=== PATIENT | female | born 2000 | race Caucasian/White ===

== ENCOUNTER 2019-12-27 10:40 | Emergency (ER) | payer OTHER ==
[2019-12-27 12:44] LABS: Urine Blood NEGATIVE (NEG); Urine Glucose NEGATIVE (NEG); Urine Protein NEGATIVE (NEG); Urine Specific Gravity 1.025 (1.005-1.030); Urine pH 7.5 (5.0-7.0)
--- NOTE | 2019-12-27 12:49 | ER ---
Nurse's Notes [facility] Name: Cherelle Randolph Age: 19 yrs Sex: Female : 2000 Arrival Date: 12/27/2019 Time: 11:12 Bed 12 Private MD: Diagnosis: Contact with other nonvenomous marine animals Presentation: 12/26 11:17 Chief complaint: Patient states: L thumb swelling that began 13 hours ago. pt reports ss it started out as a rash that went up her arm, but that has since gone away. Coronavirus screen: Proceed with normal triage. Patient denies a cough. Patient denies shortness of breath or difficulty breathing. Patient denies measured and/or subjective temperature greater than 100.4F prior to today's visit. Patient denies travel on a cruise ship or to a country the [facility] currently lists as an affected area. Patient denies contact with known and/or suspected case of COVID-19. Ebola Screen: Patient denies exposure to infectious person. Patient denies travel to an Ebola-affected area in the 21 days before illness onset. Initial Sepsis Screen: Does the patient meet any 2 criteria? No. Patient's initial sepsis screen is negative. Does the patient have a suspected source of infection? No. Patient's initial sepsis screen is negative. Risk Assessment: Do you want to hurt yourself or someone else?. Onset of symptoms was December 26, 2019. 11:17 Method Of Arrival: Ambulatory ss 11:17 Acuity: KRYSTAL 5 ss Historical: - Allergies: 11:20 Kiwi (Actinidia Chinensis); ss - Home Meds: 11:20 None [Active]; ss - PMHx: 11:20 None; ss - PSHx: 11:20 cyst removed from wrist; ss - Immunization history:: Adult Immunizations up to date. - Social history:: Smoking status: Patient denies any tobacco usage or history of. Screenin:17 Abuse screen: Denies threats or abuse. Denies injuries from another. Nutritional ss screening: No deficits noted. Tuberculosis screening: Never had TB. Fall Risk None identified. Assessment: 11:17 General: Appears in no apparent distress. comfortable, Behavior is calm, cooperative, ss Denies fever, feeling ill, fatigue, chills. Pain: Complains of pain in IP of right thumb Pain currently is 0 out of 10 on a pain scale. Neuro: Level of Consciousness is awake, alert, obeys commands, Oriented to person, place, time, situation. Cardiovascular: Pulses are palpable in right radial artery and left radial artery. Respiratory: Airway is patent Respiratory effort is even, unlabored, Respiratory pattern is regular, symmetrical. EENT: Oral mucosa is moist. Derm: Skin is pink, warm \T\ dry. normal. Musculoskeletal: Circulation, motion, and sensation intact. Capillary refill < 3 seconds, is brisk, in bilateral fingers. Range of motion: intact in all extremities, Swelling absent. Vital Signs: 11:17 BP 127 / 70; Pulse 59; Resp 16; Temp 98.2(TE); Pulse Ox 99% on R/A; Weight 44.54 kg; ss Pain 0/10; ED Course: 11:12 Patient arrived in ED. ss 11:17 Patient has correct armband on for positive identification. Bed in low position. Call ss light in reach. 11:17 No provider procedures requiring assistance completed. Patient did not have IV access ss during this emergency room visit. 11:19 Triage completed. ss 11:20 Arm band placed on right wrist. ss 12:01 Zuleyma Rocha FNP-C is [facility]. snw 12:01 Farhad Ibarra MD is Attending Physician. snw 12:18 Monse Hughes, DANIEL is Primary Nurse. ss Administered Medications: 13:06 Drug: Doxycycline 100 mg Route: PO; hb 13:20 Follow up: Response: No adverse reaction ss 13:06 Drug: Motrin 400 mg Route: PO; hb 13:20 Follow up: Response: No adverse reaction ss Outcome: 12:49 Discharge ordered by . snw 13:07 Patient left the ED. hb 13:07 Discharged to home ambulatory. ss 13:07 Condition: good 13:07 Discharge instructions given to patient, Instructed on discharge instructions, follow up and referral plans. medication usage, Demonstrated understanding of instructions, follow-up care, medications. Signatures: Zuleyma Rocha FNP-C CHOIR MEMBER-Csnw Monse Hughes, RN RN Beena Lane RN RN hb
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
[2019-12-27] MEDS ORDERED: IBUPROFEN 400 MG TAB ONE (13:10)
[2019-12-27] MEDS ORDERED: DOXYCYCLINE 100 MG CAP PO ONE (13:10)
[2019-12-27 13:50] VITALS: BP 127/70; TEMP 98.2; O2SAT 99
== END 2019-12-27 13:07 | disposition home or self-care (01) ==
LOC: ER 10:40
DX: R21 Rash and other nonspecific skin eruption (principal); W56.39XA Other contact with other marine mammals, initial encounter; Y93.89 Activity, other specified; Y92.832 Beach as the place of occurrence of the external cause; Z91.018 Allergy to other foods
CPT/HCPCS: 81003; 81025; 99283

== ENCOUNTER 2020-02-29 10:39 | Emergency (ER) | payer OTHER | END 2020-02-29 11:03 | disposition left against medical advice (07) | LOC: ER 10:39 | DX: Z02.9 Encounter for administrative examinations, unspecified (principal) ==